=== PATIENT | male | born 1990 | race Caucasian/White ===

== ENCOUNTER 2017-06-14 15:53 | Emergency (ER) | payer SELFPAY ==
[2017-06-14 16:00] VITALS: BMI 39.5
[2017-06-14 16:42] VITALS: BP 146/94
--- NOTE | 2017-06-14 17:13 | DR.URIAD ---
HPI - PCP Primary Care Physician: NFD - HPI Comment HPI Comment: WORSE TONIGHT. - Complaint Chief Complaint Doctors Comments: COUGH, COLD CONGESTION TIMES 2 DAYS. Chief Complaint:: PT C/O CCC FOR A DAYS... Self Treatment fo Chief Complaint: ADVIL - Reviewed Nurses Notes Reviewed: Yes - Source History Provided: Patient - Mode of Arrival Mode of Arrival: Ambulatory - Timing Onset of Chief Complaint: 06/12/17 - Context Recent Treated Infections: None History of Respiratory: None - Quality Quality of Cough: Productive, Yellow Rhinorrhea: Green Shortness of Breath: Mild - Associated Signs and Symptoms Other Signs and Symptoms: Cough, Shortness of Breath, Sore Throat, URI PMH - PMH Past Medical History: Yes Past Medical History: COPD, Hypertension Past Surgical History: No - Family History History of Family Medical Conditions: No Family Medical History: Diabetes Mellitus, Cancer - Social History Does patient currently use any type of tobacco product: Yes Have you used tobacco products in the last 12 months: Yes Type of Tobacco Use: Cigarettes How many years tobacco product used: 10 Does any household member use tobacco: No Alcohol Use: None Do you use any recreational Drugs:: No Lives With: Family Lives Where: Home - infectious screening In the last 2 months have you had wt loss of >10#?: NO Have you had fever, night sweats or hemotysis?: No Have you traveled outside the country in the last 6 months?: No Isolation: Standard ROS - Review of Systems Constitutional: Fever, Fatigue Eyes: negative: Eye Pain, Discharge ENTM: Nose Discharge, Nose Congestion, Throat Pain. negative: Ear Pain Respiratoy: Non-Productive Cough, Short of Breath. negative: Wheezing, Hemoptysis Gastrointestinal/Abdominal: No Symptoms Reported Genitourinary: No Symptoms Reported Neurological: Headache Musculoskeletal: Muscle Pain Integumentary: No Symptoms Reported Hematologic/Lymphatic: No Symptoms Reported Endocrine: No Symptoms Reported All Other Systems: Reviewed and Negative PE - Vital Signs Vitals: Temperature 97.7 F Pulse Rate 91 Respiratory Rate 20 Blood Pressure [Left Arm] 146/94 Blood Pressure 196/82 O2 Sat by Pulse Oximetry 99 - General Limitations: No Limitations General Appearance: Alert - Head Head Exam: Normal Inspection - Eyes Eye exam: Normal Appearance - ENT ENT Exam: Normal External Ear Exam External Ear Exam: Normal External Inspection TM/Canal Exam: Bilateral Bulging Nose Exam: Normal Nose Exam Mouth Exam: Normal Inspection Throat Exam: Normal Inspection MDM - Differential Diagnosis Differential Diagnosis: Otitis media, Streptococcal pharyngitis, Viral pharyngitis, Pneumonia, Sinsusitis, URI Course - Treatment Treatment: SEE ORDERS. - Education/Counseling Education/Counseling: Patient, Education Educated On: Treatment, Diagnosis, Needs for Follow Up ROR - Labs Reviewed Laboratory Results Reviewed?: Yes Laboratory: Streptococcus Screen Negative (NEGATIVE) 06/14/17 16:32 - Diagnosis Discharge Problem: Sore throat Acute bronchitis Qualifiers: Bronchitis organism: other organism Qualified Code(s): J20.8 - Acute bronchitis due to other specified organisms - Discharge Plan Disposition: HOME, SELF-CARE Condition: Stable Prescriptions: Amoxicillin [Amoxil 875 mg] 875 mg PO Q12H #20 tab Benzonatate [TESSALON PERLES *] 200 mg PO TID PRN #30 cap PRN Reason: Cough - Follow ups/Referrals Follow ups/Referrals: NFD,None [Primary Care Provider] - 3 days - Instructions Instructions: Tonsillitis, [id number], Acute Bronchitis, [id number] Additional Instructions: RETURN TO ED IF WORSE.
[2017-06-14] MEDS ORDERED: AMOXIL CAP 500 MG PO ONE ×2 (18:00→18:02)
[2017-06-14] MEDS ORDERED: TESSALON PERLES PO ONE (18:01)
== END 2017-06-14 18:15 | disposition home or self-care (01) ==
LOC: ER 16:06
DX: J20.8 Acute bronchitis due to other specified organisms (principal); J02.9 Acute pharyngitis, unspecified; B95.61 Methicillin susceptible Staphylococcus aureus infection as the cause of diseases classified elsewhere
CPT/HCPCS: 87070; 87077; 87186; 87880; 99282